=== PATIENT | female | born 1985 | race Caucasian/White ===

== ENCOUNTER 2022-02-14 08:58 | Inpatient (IN) | payer MEDICAID ==
[~2022-02-14] VITALS: Ht 165.1 cm; Wt 87.9 kg
[2022-02-14] MEDS ORDERED: thiamine 100mg/ml 2ml inj. IV ONE (09:30)
[2022-02-14] MEDS ORDERED: folic acid 1mg/0.2ml inj IV ONE (09:30)
[2022-02-14] MEDS ORDERED: LORazepam 2 mg/ml vial IV ONE (09:30)
[2022-02-14] MEDS ORDERED: normal saline 1000ML IV soln IV ONE (09:30)
[2022-02-14 09:40] LABS: BASOPHILS # (AUTO) 0.1 X10'3 (0-0.2); BASOPHILS % (AUTO) 1.4 % (0-1); EOSINOPHILS # (AUTO) 0.2 X10'3 (0-0.9); EOSINOPHILS % (AUTO) 1.9 % (0-6); HEMATOCRIT 44.1 % (35.0-45.0); HEMOGLOBIN 14.9 g/dl (12.0-16.0); LYMPHOCYTES % (AUTO) 24.5 % (21-51); MEAN CORPUSCULAR HEMOGLOBIN 31.9 PG (27.0-31.0); MEAN CORPUSCULAR HGB CONC 33.7 g/dL (33.0-36.5); MEAN CORPUSCULAR VOLUME 94.6 FL (78-98); MEAN PLATELET VOLUME 8.4 FL (7.4-10.4); MONOCYTES # (AUTO) 0.5 X10'3 (0-0.9); MONOCYTES % (AUTO) 6.3 % (2-12); NEUTROPHILS # (AUTO) 5.5 X10'3 (1.8-7.7); NEUTROPHILS % (AUTO) 65.9 % (42-75); PLATELET COUNT 253 X10'3 (140-440); RED BLOOD COUNT 4.66 X10'6 (4.20-5.60); RED CELL DISTRIBUTION WIDTH 13.7 % (11.5-14.5); WHITE BLOOD COUNT 8.3 X10'3 (4.5-11.0)
[2022-02-14 09:47] LABS: ALANINE AMINOTRANSFERASE 57 U/L (12-78); ALBUMIN 3.7 G/DL (3.4-5.0); ALBUMIN/GLOBULIN RATIO 0.9 (1.1-1.5); ALKALINE PHOSPHATASE 62 IU/L (46-116); ANION GAP 12 (8-16); ASPARTATE AMINO TRANSFERASE 21 U/L (10-37); BILIRUBIN,TOTAL 0.2 MG/DL (0.1-1.0); BLOOD UREA NITROGEN 12 MG/DL (7-18); BUN/CREATININE RATIO 13.8 (6.6-38.0); CALCIUM 8.8 MG/DL (8.5-10.1); CHLORIDE 103 MMOL/L (99-107); CREATININE 0.87 MG/DL (0.40-0.90); GLUCOSE 99 MG/DL (70-104); POTASSIUM 3.6 MMOL/L (3.5-5.1); SODIUM 139 MMOL/L (135-145); TOTAL CARBON DIOXIDE 23.8 MMOL/L (24-32); TOTAL PROTEIN 7.6 G/DL (6.4-8.2); eGFR 75 ML/MIN
[2022-02-14 09:55] LABS: ETHANOL 0.057 GM/DL (0.0-0.010)
[2022-02-14 10:17] LABS: CLARITY,URINE CLEAR (Clear); COLOR,URINE YELLOW (Yellow); GLUCOSE, URINE NEGATIVE (Neg); KETONES,URINE NEGATIVE (Neg); LEUKOCYTE ESTERASE ,URINE NEGATIVE (Neg); NITRITES, URINE NEGATIVE (Neg); OCCULT BLOOD,URINE TRACE-INTACT (Neg); PROTEIN,URINE NEGATIVE (Neg); URINE HCG NEGATIVE (NEG); UROBILINOGEN,URINE 0.2 E.U/dL (0.2-1.0)
[2022-02-14 10:22] LABS: URINE AMPHETAMINE SCREEN NEGATIVE (Neg); URINE BARBITUATE SCREEN NEGATIVE (Neg); URINE BENZODIAZEPINES SCREEN NEGATIVE (Neg); URINE CANNABINOID SCREEN NEGATIVE (Neg); URINE COCAINE SCREEN NEGATIVE (Neg); URINE METHADONE SCREEN NEGATIVE (Neg); URINE OPIATE SCREEN NEGATIVE (Neg); URINE PHENCYCLIDINE SCREEN NEGATIVE (Neg)
[2022-02-14 10:29] LABS: UA COLLECTION TYPE CLN CATCH MIDSTREAM
[2022-02-14 10:30] LABS: SQUAMOUS EPITHELIAL CELL,UR MODERATE /LPF (FEW)
[2022-02-14 10:31] LABS: BACTERIA,URINE NONE SEEN /HPF (Neg); RBC,URINE 0-2 /HPF (0-2); WBC,URINE 0-4 /HPF (0-4)
--- NOTE | 2022-02-14 12:03 | NUR ---
Packet faxed to [facility]
--- NOTE | 2022-02-14 12:36 | NUR ---
PT SLEEPING AT THIS TIME IN HER LFT LATERAL POSITION.
--- NOTE | 2022-02-14 14:00 | NUR ---
PT SLEEPING AMD SNORING AT THIS TIME,WILL CONT TO MONITOR.
--- NOTE | 2022-02-14 15:48 | NUR ---
[facility] eval at bedside.
--- NOTE | 2022-02-14 15:56 | NUR ---
pt came to nurses station and stated "I need to smoke otherwise I'll leave, nicotine patches or lozenges doesn't work for me".
--- NOTE | 2022-02-14 15:59 | NUR ---
informed the pt that she has to wait for [facility] eval response .pt still standing at nurses station to get response from [facility] eval.
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
[2022-02-14] MEDS ORDERED: OLANZapine **IM** 10 mg inj. IM ONE (16:15)
[2022-02-14] MEDS ORDERED: LORazepam 2 mg/ml vial IM ONE (16:15)
--- NOTE | 2022-02-14 16:30 | NUR ---
Dr Justice at bedside talking to the pt .
--- NOTE | 2022-02-14 19:11 | NUR ---
Pt is in bed asleep with bilateral wrist restraints when this nurse arrived. Pt has been sleeping and right restraints was removed at 1900. Pts room is clean. Will continue to monitor.
--- NOTE | 2022-02-14 19:25 | NUR ---
Note dayday in EDM - 02/14/22 at 1927 by AMERICO Pt up to the desk asking for 2 more suboxone patches, nicotine patch and now states that he is having alcohol withdrawls. He is walking around the overflow room still having hallucinations.
--- NOTE | 2022-02-14 20:00 | NUR ---
Pt in bed sleeping. Left wrist restraint has been removed.
--- NOTE | 2022-02-14 20:31 | NUR ---
Pt in bed and sleeping.
--- NOTE | 2022-02-14 21:06 | NUR ---
Pt awake and ate her dinner. Pt is calm and cooperative at this time.
--- NOTE | 2022-02-14 21:40 | NUR ---
Pt ambulated to the bathroom and got back in bed and went to sleep.
--- NOTE | 2022-02-14 23:04 | NUR ---
Pt in bed laying on her right side.
--- NOTE | 2022-02-14 23:36 | NUR ---
Pt in bed sleeping. Respirations are even and unlabored.
--- NOTE | 2022-02-15 01:30 | NUR ---
Pt in bed asleep on her back. Respirations are even and unlabored.
--- NOTE | 2022-02-15 03:27 | NUR ---
Pt in bed asleep on her back. Respirations are even and unlabored.
--- NOTE | 2022-02-15 05:31 | NUR ---
Pt in bed sleeping on her back. Respirations are even and unlabored.
--- NOTE | 2022-02-15 06:24 | NUR ---
Note dayday in ED - 02/15/22 at 0625 by ROBERTO Patient laying on right side. Patient had just laid down after ambulating to the . No distress observed. Continue to monitor.
--- NOTE | 2022-02-15 06:26 | NUR ---
Patient sleeping on right side. Respirations deep and nonlabored. Continue to monitor.
--- NOTE | 2022-02-15 07:35 | NUR ---
Patient up at nurses station asking to speak to someone about leaving. RN explained the hold process. Patient is not happy and wants to leave. Patient states I will never do this again. Tech gave patient paper, crayons and a marker to use. Continue to monitor.
--- NOTE | 2022-02-15 08:59 | NUR ---
Patient was awakened for breakfast but did not sit up to eat. No distress observed. Covered breakfast tray is at bedside. Continue to monitor.
--- NOTE | 2022-02-15 10:35 | NUR ---
Patient got up and is upset because there are no windows in the ED OF area. Patient c/o "this is not right". RN apologized and explained that this area is a holding area and she was sure patient would be leaving today (Raul Santana called earlier for report). Patient went back to bed. Continue to monitor.
--- NOTE | 2022-02-15 11:40 | NUR ---
Patient speaking on the phone with her children. No distress observed. Continue to monitor.
--- NOTE | 2022-02-15 12:35 | NUR ---
Patient eating lunch. No distress observed. Continue to monitor.
--- NOTE | 2022-02-15 13:11 | NUR ---
Patient advises RN that Stephanie told her to ask to speak to the person who placed her on a hold. "And don't delay". RN called [facility] and advised Tamia that patient wanted to speak to Jovita. Continue to monitor.
--- NOTE | 2022-02-15 13:20 | NUR ---
Patient asked for a tongue stitcher because patient does not want to be here. RN gave patient the Patient's Advocate phone number. Patient speaking to Stephanie. Continue to monitor.
--- NOTE | 2022-02-15 14:15 | NUR ---
Patient upset because she knows she was supposed to go to [facility] at 1400 and they have not picked her up yet. Patient called RN a liar. Patient also asked RN if she had called for [facility] psychological operations. RN advised patient that she had called 3 times. Continue to monitor.
--- NOTE | 2022-02-15 14:25 | NUR ---
Patient c/o about not leaving yet when Nicolas Mckinnon RN from [facility] walks in with a w/c. Patient c/o about what a horrible place this is. Patient initially refused to get in the w/c and Security Rubin advised patient that she doesn't make the decisions and advised patient to sit in the w/c. Patient complained and told everyone what horrible people we all were and then complied. Patient up to [facility] via w/c with all her belongs with JOSE Aly and at side.
[2022-02-15] MEDS ORDERED: mag hydrox/Alum hydrox/simeth 30ml oral suspension PO PRN (14:45)
[2022-02-15] MEDS ORDERED: acetaminophen 325mg tablet PO PRN ×2 (14:45)
[2022-02-15] MEDS ORDERED: magnesium hydroxide 30ml (MOM) UD suspension PO PRN (14:45)
[2022-02-15] MEDS ORDERED: loperamide 2mg capsule PO PRN (14:45)
--- NOTE | 2022-02-15 14:52 | NUR ---
Admit note: PT admitted today to [facility] on a 5150 for DTS from our Emergency room at 1425. Pt reported that she has been suicidal and states "My kids are better off without me." She then became extremely agitated and is observed to be emotionally dysregulated. We are unable to safety plan at this time. Pt has history of PTSD, depression, anxiety.
[2022-02-15 14:57] VITALS: BP 127/88
[2022-02-15] MEDS: NICOTINE POLACRILEX 2 MG LOZENGE BC PRN ×3 (15:38→20:42)
[2022-02-15] MEDS ORDERED: NO HOME MEDS (15:47)
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
[2022-02-16] MEDS: NICOTINE POLACRILEX 2 MG LOZENGE BC PRN ×5 (06:04→16:01)
[2022-02-16 07:07] VITALS: BP 116/77
[2022-02-16] MEDS ORDERED: nicotine 21mg patch - 24 hr TD SCH (08:00)
[2022-02-16 09:28] LABS: CHOL/HDL RATIO 3.2 (0.00-4.99); CHOLESTEROL 155 MG/DL (0-200); HDL CHOLESTEROL 48 MG/DL (35-60); TRIGLYCERIDES 78 MG/DL (20-135)
[2022-02-16 09:47] LABS: LDL CHOLESTEROL 89 MG/DL (50-100)
[2022-02-16 09:49] LABS: HEMOGLOBIN A1C 5.2 % (4.5-6.2)
--- NOTE | 2022-02-16 16:13 | NUR ---
Problem : t reported that she has been suicidal and states "My kids are better off without me." She then became extremely agitated and is observed to be emotionally dysregulated. We are unable to safety plan at this time. Pt has history of PTSD, depression, anxiety. Interventions : Introduced self and established rapport, maintained a safe and supportive environment, ensured contract for safety, provided clear and simple instructions, provided active listening and positive encouragement, and maintained Q 15min safety checks. Response : Received pt. up in hallway at the beginning of the shift, she greeted this telegraphic typewriter operator animatedly. Pt. attended breakfast in the Group Room and was observed to be interacting appropriately with others. 1:1 was completed afterwards at bedside and pt. presents as pleasant and cooperative, however is perseverating on her desire to discharge and becomes tearful at intervals. She currently denies any S/I, H/I, A/V/MCCAULEY, and no delusional statements were made. Pt. appears to be minimizing any mental health s/s and states, "I feel like I'm here by mistake. I just came to the ER for someone to talk. Next time I'm just going to [employer]." She is also worried that being here will affect her employment at her two current jobs that she loves. This telegraphic typewriter operator provided active listening and positive encouragement and pt. reported contentment. She remained up throughout the day interacting with others and attended group. Plan : Pt. requires interruption of current crisis and a safe and supportive environment.
[2022-02-16] MEDS ORDERED: ESCI5TAB PO (18:52)
[2022-02-16] MEDS ORDERED: BUSP5TAB26 PO (18:52)
[2022-02-16 19:00] VITALS: BP 128/78
--- NOTE | 2022-02-16 20:39 | NUR ---
SODA DRY HOUSE OPERATOR NOTE: Client met with AMAN Hou and was discharged to home. This RN reviewed the discharge packet with client. Belongings were reviewed with, and returned to client. Client had a full affect and stable mood. No complaints or distress were reported. She left the unit at 19:50 accompanied by ALEXI Aldana. Client was picked up at the entrance of the hospital and conveyed in a private vehicle to her destination.
[2022-02-16] MEDS ORDERED: busPIRone 5mg tablet PO SCH (21:00)
[2022-02-17] MEDS ORDERED: ESCITALOPRAM OXALATE 5 MG TABLET PO SCH (08:00)
[2022-02-17] MEDS ORDERED: naltrexone 50mg tablet PO SCH (08:00)
== END 2022-02-16 19:50 | disposition home or self-care (01) | DRG 753 ==
LOC: ER 08:59 → ED HOLD 02-15 12:50 → ADULT MH 02-15 14:33
PROVIDERS: ADMIT Psychiatry & Neurology Psychiatry; ATTEND Psychiatry & Neurology Psychiatry
DX: F39 Unspecified mood [affective] disorder (principal); R45.851 Suicidal ideations; F43.12 Post-traumatic stress disorder, chronic; F32.9 Major depressive disorder, single episode, unspecified; R45.1 Restlessness and agitation; E66.3 Overweight; F10.20 Alcohol dependence, uncomplicated; Z20.822 Contact with and (suspected) exposure to COVID-19; K58.9 Irritable bowel syndrome, unspecified; F17.210 Nicotine dependence, cigarettes, uncomplicated; Z78.1 Physical restraint status; Z83.3 Family history of diabetes mellitus; Z68.32 Body mass index [BMI] 32.0-32.9, adult; Z88.8 Allergy status to other drugs, medicaments and biological substances; Z71.6 Tobacco abuse counseling
CPT/HCPCS: 36415; 80053; 80061; 80305; 80320; 81001; 81025; 83036; 84443; 85025; 87081; 87811; 96361; 96372; 96374; 96375; 99285; J2060; J3411; J3490; J7030